=== PATIENT | female | born 1970 | race Asian ===

== ENCOUNTER → 2016-11-09 | Outpatient (CLI) | payer OTHER | LOC: WI 08:23 | PROVIDERS: ATTEND Physician Assistant Medical | DX: Z12.31 Encounter for screening mammogram for malignant neoplasm of breast (principal) | CPT/HCPCS: 77067; G0202 ==

== ENCOUNTER → 2016-11-09 | Outpatient (CLI) | payer OTHER ==
[2016-11-09 09:30] LABS: CHOLESTEROL 179.08 mg/dL (0-200); Direct HDL 50 mg/dL (>40); GLUCOSE 93 mg/dL (75-110); TRIGLYCERIDES 85 mg/dL (<150)
[2016-11-09 09:41] LABS: DIRECT LDL 98 mg/dL (<100)
== END ==
LOC: LAB 08:58
PROVIDERS: ATTEND Physician Assistant Medical
DX: N39.3 Stress incontinence (female) (male) (principal); Z13.1 Encounter for screening for diabetes mellitus; Z13.220 Encounter for screening for lipoid disorders
CPT/HCPCS: 36415; 80061; 82947; 87086

== ENCOUNTER 2018-11-05 08:22 | Inpatient (IN) | payer OTHER ==
--- NOTE | 2018-11-05 08:49 | ER Document Report ---
ED Medical Screen (RME) - General Chief Complaint: Abdominal Pain Stated Complaint: STOAMCH PAIN, FEVER, VOMITING Time Seen by Provider: 11/05/18 08:43 Primary Care Provider: AMAURY CASILLAS PA-C [Primary Care Provider] - Follow up as needed Mode of Arrival: Ambulatory Information source: Patient Notes: Patient presents emergency department with complaints of abdominal pain epigastric area since last Monday. Reports is coming and going. Reports worse after eating. Reports that she felt warm but did not take her temperature. She reports after she vomits she feels better. She also reports she took [id number] Prilosec which made pain worse. Denies past medical history. I have greeted and performed a rapid initial assessment of this patient. A comprehensive ED assessment and evaluation of the patient, analysis of test results and completion of the medical decision making process will be conducted by additional ED providers. TRAVEL OUTSIDE OF THE [place] IN LAST 30 DAYS: No - Related Data Allergies/Adverse Reactions: No Known Allergies Allergy (Verified 11/05/18 08:23) Past Medical History - Immunizations Hx Diphtheria, Pertussis, Tetanus Vaccination: Yes Doctor's Discharge - Discharge Referrals: AMAURY CASILLAS PA-C [Primary Care Provider] - Follow up as needed
[2018-11-05 09:51] LABS: ABSOLUTE MONOCYTES (AUTO) 0.5 10^3/uL (0.1-1.4); ABSOLUTE NEUT (AUTO) 10.6 10^3/uL (1.7-8.2); BASOPHILS % (AUTO) 0.2 % (0-2); EOSINOPHILS % (AUTO) 0.1 % (0-6); HEMATOCRIT 42.4 % (36.0-47.0); HEMOGLOBIN 14.5 g/dL (12.0-15.5); LYMPHOCYTES % (AUTO) 8.4 % (13-45); MEAN CORPUSCULAR HEMOGLOBIN 30.4 pg (27.0-33.4); MEAN CORPUSCULAR HGB CONC 34.2 g/dL (32.0-36.0); MEAN CORPUSCULAR VOLUME 89 fl (80-97); MONOCYTES % (AUTO) 4.5 % (3-13); PLATELET COUNT 275 10^3/uL (150-450); RED BLOOD COUNT 4.78 10^6/uL (3.72-5.28); RED CELL DISTRIBUTION WIDTH 13.8 % (11.5-14.0); SEGMENTED NEUTROPHILS % (AUTO) 86.8 % (42-78); TOTAL CELLS COUNTED % (AUTO) 100 %; WHITE BLOOD COUNT 12.3 10^3/uL (4.0-10.5)
[2018-11-05 10:08] LABS: ALANINE AMINOTRANSFERASE 368 U/L (9-52); ALBUMIN 4.7 g/dL (3.5-5.0); ALKALINE PHOSPHATASE 587 U/L (38-126); ANION GAP 15 (5-19); ASPARTATE AMINO TRANSFERASE 238 U/L (14-36); BILIRUBIN,DIRECT 5.1 mg/dL (0.0-0.4); BILIRUBIN,TOTAL 6.2 mg/dL (0.2-1.3); BLOOD UREA NITROGEN 12 mg/dL (7-20); CALCIUM 9.9 mg/dL (8.4-10.2); CARBON DIOXIDE 23 mmol/L (22-30); CHLORIDE 100 mmol/L (98-107); GLUCOSE 91 mg/dL (75-110); LIPASE 560.8 U/L (23-300); POTASSIUM 3.8 mmol/L (3.6-5.0); SODIUM 138.2 mmol/L (137-145); TOTAL PROTEIN 8.3 g/dL (6.3-8.2)
--- NOTE | 2018-11-05 10:46 | RADIOLOGY REPORT (SQ) ---
EXAM DESCRIPTION: U/S ABDOMEN LIMITED W/O DOP COMPLETED DATE/TIME: 11/05/2018 10:27 am REASON FOR STUDY: epigastric pain, worse after eating COMPARISON: None. TECHNIQUE: Dynamic and static grayscale images acquired of the abdomen and recorded on PACS. Margaretteo la selected color Doppler and spectral images recorded. LIMITATIONS: None. FINDINGS: PANCREAS: No masses. Visualized pancreatic duct normal caliber. LIVER: No masses. Echotexture normal. LIVER VASCULATURE: Normal directional flow of the main portal vein and hepatic veins. GALLBLADDER: No stones. There is some sludge. There is thickening of the gallbladder wall and a sma ll amount of pericholecystic fluid. ULTRASOUND-DETECTED ARTEAGA'S SIGN: Negative. INTRAHEPATIC DUCTS AND COMMON DUCT: CBD and intrahepatic ducts normal caliber. No filling defects. INFERIOR VENA CAVA: Not imaged. AORTA: No aneurysm. RIGHT KIDNEY: Normal size, 10.1 cm. Normal echogenicity. No solid or suspicious masses. No hydroneph rosis. No calcifications. PERITONEAL AND RIGHT PLEURAL SPACE: No ascites or effusions. OTHER: No other significant findings. IMPRESSION: Mild gallbladder wall thickening with some pericholecystic fluid. There is some sludge. No stones are present. Correlate for cholecystitis. However, there was a negative Arteaga sign. TECHNICAL DOCUMENTATION: JOB ID: [id number] [email or web address]- All Rights Reserved Reading location - IP/workstation name: [email or web address]
[2018-11-05 11:16] LABS: APPEARANCE,URINE SLIGHTLY-CLOUDY; BILIRUBIN,URINE MODERATE (NEGATIVE); COLOR,URINE AMBER; GLUCOSE, URINE NEGATIVE (NEGATIVE); KETONES,URINE 80 mg/dL (NEGATIVE); LEUKOCYTE ESTERASE,URINE NEGATIVE (NEGATIVE); NITRITE,URINE NEGATIVE (NEGATIVE); PROTEIN,URINE 100 mg/dL (NEGATIVE)
--- NOTE | 2018-11-05 13:26 | ER Document Report ---
ED General - General Chief Complaint: Abdominal Pain Stated Complaint: STOAMCH PAIN, FEVER, VOMITING Time Seen by Provider: 11/05/18 08:43 Primary Care Provider: AMAURY CASILLAS PA-C [NO LOCAL MD] - Follow up as needed Mode of Arrival: Ambulatory Notes: 48-year-old female with no known medical history presents emergency department with complaints of the gastric abdominal pain epigastric since last Monday. She states it is intermittent and reports is worse after eating. Reports that s he felt warm but did not take her temperature. She reports after she vomits she feels better. She also reports she took [id number] Prilosec which made pain worse. She complains of reduced appetite, nausea chills. Denies shortness of breath or chest pain she has no other complaints. TRAVEL OUTSIDE OF THE [place] IN LAST 30 DAYS: No - Related Data Allergies/Adverse Reactions: No Known Allergies Allergy (Verified 11/05/18 08:23) Past Medical History - General Information source: Patient - Social History Smoking Status: Unknown if Ever Smoked Family History: None Patient has suicidal ideation: No Patient has homicidal ideation: No Renal/ Medical History: Denies: Hx Peritoneal Dialysis - Immunizations Hx Diphtheria, Pertussis, Tetanus Vaccination: Yes Review of Systems - Review of Systems Constitutional: See HPI EENT: No symptoms reported Cardiovascular: See HPI Respiratory: See HPI Gastrointestinal: See HPI Genitourinary: No symptoms reported Female Genitourinary: No symptoms reported Musculoskeletal: No symptoms reported Skin: No symptoms reported Hematologic/Lymphatic: No symptoms reported Neurological/Psychological: No symptoms reported Physical Exam - Notes Notes: PHYSICAL EXAMINATION: Reviewed vital signs and charting by RN GENERAL: Alert, interacts well. No acute distress. HEAD: Normocephalic, atraumatic. EYES: Pupils equal, round. Extraocular movements intact. ENT: Oral mucosa moist, tongue midline. NECK: Full range of motion. Supple. Trachea midline. LUNGS: Clear to auscultation bilaterally, no wheezes, rales, or rhonchi. No respiratory distress. HEART: Regular rate and rhythm. No murmur ABDOMEN: soft, epigastric tenderness. Non-distended. Bowel sounds present in all 4 quadrants. no McBurney's point tenderness, no Arteaga sign. EXTREMITIES: Moves all 4 extremities spontaneously. No edema, No cyanosis. PSYCH: Normal affect, normal mood. SKIN: Warm, dry, normal turgor. No rashes or lesions noted. Course - Re-evaluation Re-evalutation: 11/05/18 13:20 Ultrasound sludge in gallbladder with no gallstones. Lipase is elevated at 2 times upper normal limit. AST/ALT elevated. Could possibly represent gallbladder disease. Patient does report of epigastric pain that goes through to her back. Will discuss with Dr. Crowder. 11/05/18 13:[address] Hernández, surgicalist, who stated to start the patient on IV Zosyn and he will come and see her for his OR case. 11/05/18 15:13 Dr. Hernández saw the patient and consulted with Dr. Mireles, taxicab starter. Patient will be admitted under the surgical service and will undergo an ERCP tomorrow. - Laboratory Result Diagrams: 11/05/18 09:10 11/05/18 09:10 Laboratory results interpreted by me: 11/05/18 11/05/18 11/05/18 09:10 09:10 09:10 WBC 12.3 H Seg Neutrophils % 86.8 H Lymphocytes % 8.4 L Absolute Neutrophils 10.6 H Total Bilirubin 6.2 H Direct Bilirubin 5.1 H AST 238 H ALT 368 H Alkaline Phosphatase 587 H Total Protein 8.3 H Lipase 560.8 H Urine Protein 100 H Urine Ketones 80 H Urine Blood MODERATE H Urine Bilirubin MODERATE H Urine Urobilinogen 4.0 H Discharge - Discharge Clinical Impression: Biliary pain Abdominal pain Qualifiers: Abdominal location: epigastric Qualified Code(s): R10.13 - Epigastric pain Nausea & vomiting Qualifiers: Vomiting type: unspecified Vomiting Intractability: non-intractable Qualified Code(s): R11.2 - Nausea with vomiting, unspecified Condition: Good Disposition: ADMITTED INPATIENT Admitting Provider: Surgicalist Unit Admitted: Surgical Floor Referrals: AMAURY CASILLAS PA-C [NO LOCAL MD] - Follow up as needed
[2018-11-05] MEDS ORDERED: PIPERACILLIN/TAZOBACTAM 3.375 GM VIAL IV ONE ×2 (13:29→15:45)
[2018-11-05] MEDS ORDERED: ONDANSETRON HCL INJ/PF 4 MG/2 ML SDV IV PRN (16:06)
--- NOTE | 2018-11-05 16:06 | PDOC H&P ---
History of Present Illness Admission Date/PCP: 11/05/18 15:34 Patient complains of: epigastric pains History of Present Illness: HATTIE VLADERRAMA is a 48 year old female who noted epigastric pains radiating to the back after a fatty meal about 6 days ago. Associated nausea,chills. This gradually ubsided 48 hrs later only to come back worse yesterday. Had US gallbl adder in ED today which showed sludge with non dilated bile ducts. Her TB is 6 and DB is 5. LFTs elevated as well as lipase. Past Medical History Medical History: None Past Surgical History Past Surgical History: Reports: Other - Caesarean section Social History Smoking Status: Unknown if Ever Smoked Family History Family History: None Parental Family History Reviewed: Yes Children Family History Reviewed: No Sibling(s) Family History Reviewed.: No Medication/Allergy Allergies/Adverse Reactions: No Known Allergies Allergy (Verified 11/05/18 08:23) Review of Systems Constitutional: PRESENT: as per HPI Eyes: PRESENT: other - no visual/hearing changes Cardiovascular: PRESENT: other - no chest pains/cough Gastrointestinal: PRESENT: abdominal pain, nausea Genitourinary: PRESENT: other - no dysuria Musculoskeletal: PRESENT: back pain Physical Exam General appearance: PRESENT: mild distress Head exam: PRESENT: atraumatic Eye exam: PRESENT: scleral icterus - mild Mouth exam: PRESENT: moist Neck exam: PRESENT: full ROM Respiratory exam: PRESENT: clear to auscultation humaira Cardiovascular exam: PRESENT: RRR Pulses: PRESENT: normal radial pulses Vascular exam: PRESENT: normal capillary refill GI/Abdominal exam: PRESENT: soft, tenderness - epigastric area Rectal exam: PRESENT: deferred Extremities exam: PRESENT: full ROM Musculoskeletal exam: PRESENT: ambulatory Neurological exam: PRESENT: alert, oriented to person, oriented to place, oriented to time, oriented to situation Psychiatric exam: PRESENT: appropriate affect Skin exam: PRESENT: jaundice, normal color, warm Results Laboratory Results: 11/05/18 09:10 11/05/18 09:10 11/05/18 11/05/18 11/05/18 09:10 09:10 09:10 WBC 12.3 H RBC 4.78 Hgb 14.5 Hct 42.4 MCV 89 MCH 30.4 MCHC 34.2 RDW 13.8 Plt Count 275 Seg Neutrophils % 86.8 H Lymphocytes % 8.4 L Monocytes % 4.5 Eosinophils % 0.1 Basophils % 0.2 Absolute Neutrophils 10.6 H Absolute Lymphocytes 1.0 Absolute Monocytes 0.5 Absolute Eosinophils 0.0 Absolute Basophils 0.0 Sodium 138.2 Potassium 3.8 Chloride 100 Carbon Dioxide 23 Anion Gap 15 BUN 12 Creatinine 0.59 Est GFR ( Amer) > 60 Est GFR (Non-Af Amer) > 60 Glucose 91 Calcium 9.9 Total Bilirubin 6.2 H AST 238 H ALT 368 H Alkaline Phosphatase 587 H Total Protein 8.3 H Albumin 4.7 Lipase 560.8 H Urine Color RISHI Urine Appearance SLIGHTLY-CLOUDY Urine pH 5.0 Ur Specific [place] 1.030 Urine Protein 100 H Urine Glucose (UA) NEGATIVE Urine Ketones 80 H Urine Blood MODERATE H Urine Nitrite NEGATIVE Ur Leukocyte Esterase NEGATIVE Urine WBC (Auto) 2 Urine RBC (Auto) 3 Impressions: Abdomen Ultrasound 11/05/18 08:46 IMPRESSION: Mild gallbladder wall thickening with some pericholecystic fluid. There is some sludge. No stones are present. Correlate for cholecystitis. However, there was a negative Arteaga sign. Assessment & Plan - Diagnosis (1) Biliary sludge determined by ultrasound Is this a current diagnosis for this admission?: Yes (2) Elevated LFTs and lipase Is this a current diagnosis for this admission?: Yes (3) Nausea & vomiting Qualifiers: Vomiting type: unspecified Vomiting Intractability: non-intractable Qualified Code(s): R11.2 - Nausea with vomiting, unspecified Is this a current diagnosis for this admission?: Yes - Time Time Spent: 30 to 50 Minutes - Inpatient Certification Medical Necessity: Need For IV Fluids, Need for IV Antibiotics, Need for Surgery - Plan Summary Plan Summary: D/W Dr Mireles. He can do ERCP tomorrow and can be followed the next day with lap rubia Start IV antibiotics
[2018-11-05] MEDS ORDERED: PIPERACILLIN/TAZOBACTAM 3.375 GM VIAL IV SCH (16:15)
[2018-11-05] MEDS: DEXTROSE 5%-LACTATED RINGERS 1,000 ML IV PRN (18:04)
[2018-11-06] MEDS: DEXTROSE 5%-LACTATED RINGERS 1,000 ML IV PRN (01:16)
[2018-11-06 06:55] LABS: ABSOLUTE EOSINOPHILS # (AUTO) 0.1 10^3/uL (0.0-0.6); ABSOLUTE LYMPHOCYTES (AUTO) 1.4 10^3/uL (0.5-4.7); ABSOLUTE MONOCYTES (AUTO) 0.5 10^3/uL (0.1-1.4); ABSOLUTE NEUT (AUTO) 4.7 10^3/uL (1.7-8.2); BASOPHILS % (AUTO) 0.4 % (0-2); EOSINOPHILS % (AUTO) 1.1 % (0-6); HEMATOCRIT 39.6 % (36.0-47.0); HEMOGLOBIN 13.7 g/dL (12.0-15.5); LYMPHOCYTES % (AUTO) 20.5 % (13-45); MEAN CORPUSCULAR HEMOGLOBIN 30.6 pg (27.0-33.4); MEAN CORPUSCULAR HGB CONC 34.7 g/dL (32.0-36.0); MEAN CORPUSCULAR VOLUME 88 fl (80-97); MONOCYTES % (AUTO) 7.6 % (3-13); PLATELET COUNT 256 10^3/uL (150-450); RED BLOOD COUNT 4.49 10^6/uL (3.72-5.28); RED CELL DISTRIBUTION WIDTH 13.7 % (11.5-14.0); SEGMENTED NEUTROPHILS % (AUTO) 70.4 % (42-78); TOTAL CELLS COUNTED % (AUTO) 100 %; WHITE BLOOD COUNT 6.7 10^3/uL (4.0-10.5)
[2018-11-06 07:15] LABS: ALANINE AMINOTRANSFERASE 335 U/L (9-52); ALKALINE PHOSPHATASE 477 U/L (38-126); ANION GAP 12 (5-19); ASPARTATE AMINO TRANSFERASE 212 U/L (14-36); BLOOD UREA NITROGEN 6 mg/dL (7-20); CALCIUM 9.2 mg/dL (8.4-10.2); CARBON DIOXIDE 28 mmol/L (22-30); CHLORIDE 99 mmol/L (98-107); GLUCOSE 100 mg/dL (75-110); LIPASE 1808.1 U/L (23-300); SODIUM 138.6 mmol/L (137-145); TOTAL PROTEIN 7.4 g/dL (6.3-8.2)
[2018-11-06 07:29] LABS: BILIRUBIN,DIRECT 1.4 mg/dL (0.0-0.4)
[2018-11-06 07:39] LABS: BILIRUBIN,TOTAL 2.7 mg/dL (0.2-1.3)
[2018-11-06] MEDS: POTASSIUM CHLORIDE 20 MEQ/50 ML RTU IV SCH ×2 (08:16→10:07)
[2018-11-06] MEDS ORDERED: PIPERACILLIN SODIUM/TAZOBACTAM 3.375 GM in NORMAL SALINE 100 ML IV ONE (08:30)
[2018-11-06] MEDS ORDERED: SUCCINYLCHOLINE CHLORIDE INJ 200 MG/10 ML VIAL ONE (13:52)
[2018-11-06] MEDS ORDERED: MIDAZOLAM 2 MG/2 ML INJ ONE (16:42)
[2018-11-06] MEDS ORDERED: DEXAMETHASONE SOD PHOSPHATE INJ 4 MG/1 ML VIAL ONE (16:42)
[2018-11-06] MEDS ORDERED: ONDANSETRON HCL INJ/PF 4 MG/2 ML SDV ONE (16:42)
[2018-11-06] MEDS ORDERED: PROPOFOL INJ 200 MG/20 ML VIAL IV ONE (16:42)
[2018-11-06] MEDS ORDERED: FENTANYL CITRATE INJ/PF 100 MCG/2 ML AMPUL ONE (16:42)
--- NOTE | 2018-11-06 18:52 | PDOC CONSULTATION ---
Consultation Consult Date: 11/05/18 History of Present Illness Admission Date/PCP: 11/05/18 15:34 History of Present Illness: HATTIE VALDERRAMA is a 48 year old femalePatient was admitted on 11/05/2018 with recurrent abdominal pain, fever, gallbladder sludge and jaundice. She initially had a 4-day history of recurrent epigastric pain associated with fever and chills. The pain went away 4 days ago but came back 2 days ago. On admission her bilirubin was 6 with elevated transaminases and alkaline phosphatase. Her lipase was slightly elevated at 560. She has no previous history of liver disease. Past Surgical History Past Surgical History: Reports: Other - Caesarean section Social History Smoking Status: Never Smoker - Advance Directive Resuscitation Status: Full Code Family History Family History: None Parental Family History Reviewed: No Children Family History Reviewed: NA Sibling(s) Family History Reviewed.: NA Medication/Allergy Home Medications: Omeprazole Magnesium [Prilosec Otc] 20 mg PO DAILY 11/05/18 Allergies/Adverse Reactions: No Known Allergies Allergy (Verified 11/05/18 08:23) Review of Systems All systems: reviewed and no additional remarkable complaints except as stated Physical Exam Vital Signs: Temp Pulse Resp BP Pulse Ox 97.9 F 103 H 16 140/80 H 97 11/06/18 16:09 11/06/18 16:09 11/06/18 16:09 11/06/18 16:09 11/06/18 16:09 Intake & Output 11/05/18 11/06/18 11/07/18 06:59 06:59 06:59 Intake Total 1200 1200 Output Total 118 Balance 1082 1200 Weight 47.8 kg Exam: General: Patient is alert and looks well. HEENT: There is no pallor but she is jaundiced. PERRLA. Oropharynx normal Respiratory: No chest deformity. No respiratory distress. Chest wall palpitation was unremarkable. Breath sounds were normal Cardiovascular: Heart sounds 1 and 2 normal with no murmurs. Abdominal: Not distended. Soft and nontender. Liver and spleen not palpable. No ascites demonstrated. Bowel sounds active. Rectal examination was deferred. Extremities: No edema Neurological: Alert and oriented x4. Grossly nonfocal. Normal speech Skin: No significant rash Psychological: Normal affect Results Laboratory Results: 11/06/18 05:48 11/06/18 15:15 11/06/18 11/06/1811/06/19 05:48 05:48 15:15 WBC 6.7 RBC 4.49 Hgb 13.7 Hct 39.6 MCV 88 MCH 30.6 MCHC 34.7 RDW 13.7 Plt Count 256 Seg Neutrophils % 70.4 Lymphocytes % 20.5 Monocytes % 7.6 Eosinophils % 1.1 Basophils % 0.4 Absolute Neutrophils 4.7 Absolute Lymphocytes 1.4 Absolute Monocytes 0.5 Absolute Eosinophils 0.1 Absolute Basophils 0.0 Sodium 138.6 Potassium 3.0 L* 4.0 D Chloride 99 Carbon Dioxide 28 Anion Gap 12 BUN 6 L Creatinine 0.51 L Est GFR ( Amer) > 60 Est GFR (Non-Af Amer) > 60 Glucose 100 Calcium 9.2 Total Bilirubin 2.7 H D AST 212 H ALT 335 H Alkaline Phosphatase 477 H Total Protein 7.4 Albumin 4.0 Lipase 1808.1 H Impressions: Abdomen Ultrasound 11/05/18 08:46 IMPRESSION: Mild gallbladder wall thickening with some pericholecystic fluid. There is some sludge. No stones are present. Correlate for cholecystitis. However, there was a negative Arteaga sign. Assessment & Plan - Diagnosis (1) Jaundice Is this a current diagnosis for this admission?: Yes Plan: Her recurrent abdominal pain associated with jaundice, fever, chills, gallbladder sludge and elevated lipase is very suggestive of choledocholithiasis. The need for an ERCP was explained to the patient and she is in agreement. (2) Epigastric pain Is this a current diagnosis for this admission?: Yes (3) Biliary sludge determined by ultrasound Is this a current diagnosis for this admission?: Yes (4) Elevated LFTs and lipase Is this a current diagnosis for this admission?: Yes (5) Nausea & vomiting Qualifiers: Vomiting type: unspecified Vomiting Intractability: non-intractable Qualified Code(s): R11.2 - Nausea with vomiting, unspecified Is this a current diagnosis for this admission?: Yes
--- NOTE | 2018-11-06 18:55 | Operative Report ---
Operative Report DATE OF SURGERY: 11/06/18 Operative Report: Pre-op diagnosis: Jaundice, gallbladder sludge and pancreatitis Post-op diagnosis: 1. Large periampullar diverticulum 2. Normal pancreatic ducts 3. Common bile duct not cannulated Surgery: ERCP Medications: As per anesthesia Tissue removed: none Procedure: After informed consent obtained from patient, the throat was sprayed with Hurricane and conscious sedation was achieved. The ERCP endoscope was then inserted into the esophagus blindly and advanced into the stomach. The duodenum was entered and the ampulla was identified. There was a large diverticulum with the ampullary opening within it. Multiple attempts were then made to cannulate the common bile duct unsuccessfully. The pancreatic duct was cannulated and the pancreatogram was normal. Patient tolerated procedure well. Findings Common bile duct: Not cannulated Intrahepatic ducts: Not cannulated Pancreatic duct: Normal Plan: Proceed with cholecystectomy and intraoperative cholangiogram. OPERATION: .
[2018-11-06] MEDS ORDERED: MORPHINE SULFATE 10 MG/ML INJ IV PRN (19:12)
[2018-11-06] MEDS ORDERED: PROMETHAZINE HCL INJ 25 MG/1 ML VIAL IV PRN ×2 (19:12)
[2018-11-06] MEDS ORDERED: MEPERIDINE HCL/PF INJ 25 MG/1 ML DISP.SYRIN IV PRN (19:12)
[2018-11-06] MEDS ORDERED: DIPHENHYDRAMINE HCL 50 MG/ML VIAL IV PRN (19:12)
[2018-11-06] MEDS ORDERED: FENTANYL CITRATE INJ/PF 100 MCG/2 ML AMPUL IV PRN ×3 (19:12)
--- NOTE | 2018-11-06 23:50 | PDOC PROGRESS REPORT ---
Subjective Progress Note for:: 11/06/18 Subjective:: Less pains Reason For Visit: BILIARY SLUDGE, ELEVATED LFTS AND LIPASE Physical Exam Vital Signs: Temp Pulse Resp BP Pulse Ox 97.4 F 64 17 126/73 H 97 11/06/18 20:34 11/06/18 20:34 11/06/18 20:34 11/06/18 20:34 11/06/18 20:34 Intake & Output 11/05/18 11/06/18 11/07/18 06:59 06:59 06:59 Intake Total 1200 2100 Output Total 118 0 Balance 1082 2100 Weight 47.8 kg Results Laboratory Results: 11/06/18 05:48 11/06/18 15:15 11/06/18 11/06/18 11/06/18 05:48 05:48 15:15 WBC 6.7 RBC 4.49 Hgb 13.7 Hct 39.6 MCV 88 MCH 30.6 MCHC 34.7 RDW 13.7 Plt Count 256 Seg Neutrophils % 70.4 Lymphocytes % 20.5 Monocytes % 7.6 Eosinophils % 1.1 Basophils % 0.4 Absolute Neutrophils 4.7 Absolute Lymphocytes 1.4 Absolute Monocytes 0.5 Absolute Eosinophils 0.1 Absolute Basophils 0.0 Sodium 138.6 Potassium 3.0 L* 4.0 D Chloride 99 Carbon Dioxide 28 Anion Gap 12 BUN 6 L Creatinine 0.51 L Est GFR ( Amer) > 60 Est GFR (Non-Af Amer) > 60 Glucose 100 Calcium 9.2 Total Bilirubin 2.7 H D AST 212 H ALT 335 H Alkaline Phosphatase 477 H Total Protein 7.4 Albumin 4.0 Lipase 1808.1 H Impressions: Abdomen Ultrasound 11/05/18 08:46 IMPRESSION: Mild gallbladder wall thickening with some pericholecystic fluid. There is some sludge. No stones are present. Correlate for cholecystitis. However, there was a negative Arteaga sign. Assessment & Plan - Diagnosis (1) Biliary sludge determined by ultrasound Is this a current diagnosis for this admission?: Yes (2) Elevated LFTs and lipase Is this a current diagnosis for this admission?: Yes (3) Nausea & vomiting Qualifiers: Vomiting type: unspecified Vomiting Intractability: non-intractable Qualified Code(s): R11.2 - Nausea with vomiting, unspecified Is this a current diagnosis for this admission?: Yes - Time Time Spent with patient: 15-24 minutes - Plan Summary Plan Summary: D/W Dr PEREZ. He was not successful in ERCP. 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 Dr PEREZ suggested lap rubia with IOC and possible CBD exploration if + CBD stone vs referral to a tertiary center for ERCP. Will keep NPO after midnight. Will inform Dr Holley of above plans.
[2018-11-07] MEDS: DEXTROSE 5%-LACTATED RINGERS 1,000 ML IV PRN (03:27)
[2018-11-07 04:39] LABS: ABSOLUTE MONOCYTES (AUTO) 0.2 10^3/uL (0.1-1.4); ABSOLUTE NEUT (AUTO) 5.6 10^3/uL (1.7-8.2); BASOPHILS % (AUTO) 0.3 % (0-2); HEMATOCRIT 38.9 % (36.0-47.0); HEMOGLOBIN 13.2 g/dL (12.0-15.5); LYMPHOCYTES % (AUTO) 14.4 % (13-45); MEAN CORPUSCULAR HEMOGLOBIN 29.9 pg (27.0-33.4); MEAN CORPUSCULAR VOLUME 88 fl (80-97); MONOCYTES % (AUTO) 2.5 % (3-13); PLATELET COUNT 236 10^3/uL (150-450); RED BLOOD COUNT 4.43 10^6/uL (3.72-5.28); RED CELL DISTRIBUTION WIDTH 13.8 % (11.5-14.0); SEGMENTED NEUTROPHILS % (AUTO) 82.8 % (42-78); TOTAL CELLS COUNTED % (AUTO) 100 %; WHITE BLOOD COUNT 6.7 10^3/uL (4.0-10.5)
[2018-11-07 05:04] LABS: ANION GAP 9 (5-19); BLOOD UREA NITROGEN 4 mg/dL (7-20); CALCIUM 9.5 mg/dL (8.4-10.2); CARBON DIOXIDE 24 mmol/L (22-30); CHLORIDE 106 mmol/L (98-107); GLUCOSE 127 mg/dL (75-110); LIPASE 503.4 U/L (23-300); POTASSIUM 4.2 mmol/L (3.6-5.0); SODIUM 139.1 mmol/L (137-145)
[2018-11-07 08:09] LABS: ALANINE AMINOTRANSFERASE 256 U/L (9-52); ALBUMIN 3.5 g/dL (3.5-5.0); ALKALINE PHOSPHATASE 391 U/L (38-126); ASPARTATE AMINO TRANSFERASE 107 U/L (14-36); BILIRUBIN,TOTAL 1.7 mg/dL (0.2-1.3); TOTAL PROTEIN 6.9 g/dL (6.3-8.2)
--- NOTE | 2018-11-07 08:18 | RADIOLOGY REPORT (SQ) ---
EXAM DESCRIPTION: ENDO CATH/BILIARY DUCT; NO CHG FLUORO COMPLETED DATE/TIME: 11/06/2018 7:05 pm; 11/06/2018 7:04 pm REASON FOR STUDY: ERCP ATTEMPTED COMPARISON: None. FLUOROSCOPY TIME: 3.2 minutes Spot images saved to PACS. TECHNIQUE: Intra-operative images acquired during surgical procedure to evaluate progress. NUMBER OF IMAGES: 2 LIMITATIONS: None. FINDINGS: Fluoroscopy was provided for intraoperative procedure. Please refer to the operative repo rt for further discussion. IMPRESSION: IMAGE(S) OBTAINED DURING PROCEDURE. COMMENT: Quality ID [id number]: Final reports for procedures using fluoroscopy that document radiation exp osure indices, or exposure time and number of fluorographic images (if radiation exposure indices are not available) Please consult full operative report of the attending physician for description of the procedure. TECHNICAL DOCUMENTATION: JOB ID: [id number] [employer]- All Rights Reserved Reading location - IP/workstation name: [email or web address]
--- NOTE | 2018-11-07 08:18 | RADIOLOGY REPORT (SQ) ---
EXAM DESCRIPTION: ENDO CATH/BILIARY DUCT; NO CHG FLUORO COMPLETED DATE/TIME: 11/06/2018 7:05 pm; 11/06/2018 7:04 pm REASON FOR STUDY: ERCP ATTEMPTED COMPARISON: None. FLUOROSCOPY TIME: 3.2 minutes Spot images saved to PACS. TECHNIQUE: Intra-operative images acquired during surgical procedure to evaluate progress. NUMBER OF IMAGES: 2 LIMITATIONS: None. FINDINGS: Fluoroscopy was provided for intraoperative procedure. Please refer to the operative repo rt for further discussion. IMPRESSION: IMAGE(S) OBTAINED DURING PROCEDURE. COMMENT: Quality ID [id number]: Final reports for procedures using fluoroscopy that document radiation exp osure indices, or exposure time and number of fluorographic images (if radiation exposure indices are not available) Please consult full operative report of the attending physician for description of the procedure. TECHNICAL DOCUMENTATION: JOB ID: [id number] [employer]- All Rights Reserved Reading location - IP/workstation name: [email or web address]
[2018-11-07] MEDS ORDERED: DEXAMETHASONE SOD PHOSPHATE INJ 4 MG/1 ML VIAL ONE (12:34)
[2018-11-07] MEDS ORDERED: GLYCOPYRROLATE 1 MG/5 ML SYRINGE ONE (12:34)
[2018-11-07] MEDS ORDERED: SUCCINYLCHOLINE CHLORIDE INJ 200 MG/10 ML VIAL ONE (12:34)
[2018-11-07] MEDS ORDERED: KETOROLAC TROMETHAMINE 60 MG/2 ML SDV ONE (12:34)
[2018-11-07] MEDS ORDERED: LIDOCAINE 2% INJ-PF (20 MG/ML) 2 ML AMPUL ONE (12:34)
[2018-11-07] MEDS ORDERED: ONDANSETRON HCL INJ/PF 4 MG/2 ML SDV ONE (12:34)
[2018-11-07] MEDS ORDERED: NEOSTIGMINE METHYLSULFATE 10 MG/10 ML VIAL ONE (12:34)
[2018-11-07] MEDS ORDERED: ROCURONIUM BROMIDE INJ 50 MG/5 ML VIAL IV ONE (12:34)
[2018-11-07] MEDS ORDERED: BUPIVACAINE HCL 0.25 % INJ/PF (2.5 MG/1 ML) 30 ML VIAL ONE (12:38)
[2018-11-07] MEDS ORDERED: FENTANYL CITRATE INJ/PF 100 MCG/2 ML AMPUL ONE (12:39)
[2018-11-07] MEDS ORDERED: HYDROMORPHONE HCL INJ/PF 2 MG/ML AMPULE ONE (12:39)
[2018-11-07] MEDS ORDERED: MIDAZOLAM 2 MG/2 ML INJ ONE (12:39)
[2018-11-07] MEDS ORDERED: PROPOFOL INJ 200 MG/20 ML VIAL IV ONE (12:39)
[2018-11-07] MEDS ORDERED: ACETAMINOPHEN 1,000 MG/100 ML RTUPB IV ONE (12:40)
[2018-11-07] MEDS ORDERED: PIPERACILLIN SODIUM/TAZOBACTAM 3.375 GM in NORMAL SALINE 100 ML IV PRN (12:58)
--- NOTE | 2018-11-07 13:18 | PDOC PROGRESS REPORT ---
Subjective Progress Note for:: 11/07/18 Subjective:: 48 y/o F with jaundice and upper abdominal pain. Her ERCP was unsuccessful, however she is feeling better today. She denies CP, SOB, fevers, chills. Reason For Visit: BILIARY SLUDGE, ELEVATED LFTS AND LIPASE Physical Exam Vital Signs: Temp Pulse Resp BP Pulse Ox 98.0 F 67 15 164/79 H 98 11/07/18 11:47 11/07/18 11:47 11/07/18 11:47 11/07/18 11:47 11/07/18 11:47 Intake & Output 11/06/18 11/07/18 11/08/18 06:59 06:59 06:59 Intake Total 1200 2642 1000 Output Total 118 0 Balance 1082 2642 1000 Weight 47.8 kg 48.2 kg General appearance: PRESENT: no acute distress Head exam: PRESENT: atraumatic, normocephalic Eye exam: PRESENT: EOMI, PERRLA, scleral icterus Mouth exam: PRESENT: moist, neck supple Neck exam: ABSENT: meningismus, tenderness, thyromegaly, tracheal deviation Respiratory exam: PRESENT: clear to auscultation humaira, unlabored. ABSENT: chest wall tenderness, tachypnea Cardiovascular exam: PRESENT: RRR Pulses: PRESENT: normal radial pulses Vascular exam: PRESENT: normal capillary refill. ABSENT: pallor GI/Abdominal exam: PRESENT: soft, tenderness - epigastric. ABSENT: distended, guarding, rebound Rectal exam: PRESENT: deferred Extremities exam: ABSENT: clubbing Musculoskeletal exam: ABSENT: deformity Neurological exam: PRESENT: alert, awake, oriented to person, oriented to place, oriented to time, oriented to situation, CN II-XII grossly intact. ABSENT: motor sensory deficit Psychiatric exam: ABSENT: agitated, anxious, depressed Focused psych exam: ABSENT: delusional Skin exam: PRESENT: jaundice. ABSENT: cyanosis, erythema Results Laboratory Results: 11/07/18 03:52 11/07/18 03:52 11/06/18 11/07/18 11/07/18 15:15 03:52 03:52 WBC 6.7 RBC 4.43 Hgb 13.2 Hct 38.9 MCV 88 MCH 29.9 MCHC 34.0 RDW 13.8 Plt Count 236 Seg Neutrophils % 82.8 H Lymphocytes % 14.4 Monocytes % 2.5 L Eosinophils % 0.0 Basophils % 0.3 Absolute Neutrophils 5.6 Absolute Lymphocytes 1.0 Absolute Monocytes 0.2 Absolute Eosinophils 0.0 Absolute Basophils 0.0 Sodium 139.1 Potassium 4.0 D 4.2 Chloride 106 Carbon Dioxide 24 Anion Gap 9 BUN 4 L Creatinine 0.44 L Est GFR ( Amer) > 60 Est GFR (Non-Af Amer) > 60 Glucose 127 H Calcium 9.5 Total Bilirubin AST ALT Alkaline Phosphatase Total Protein Albumin Lipase 503.4 H 11/07/18 03:52 WBC RBC Hgb Hct MCV MCH MCHC RDW Plt Count Seg Neutrophils % Lymphocytes % Monocytes % Eosinophils % Basophils % Absolute Neutrophils Absolute Lymphocytes Absolute Monocytes Absolute Eosinophils Absolute Basophils Sodium Potassium Chloride Carbon Dioxide Anion Gap BUN Creatinine Est GFR ( Amer) Est GFR (Non-Af Amer) Glucose Calcium Total Bilirubin 1.7 H AST 107 H ALT 256 H Alkaline Phosphatase 391 H Total Protein 6.9 Albumin 3.5 Lipase Impressions: Abdomen Ultrasound 11/05/18 08:46 IMPRESSION: Mild gallbladder wall thickening with some pericholecystic fluid. There is some sludge. No stones are present. Correlate for cholecystitis. However, there was a negative Arteaga sign. Catheter Placement 11/06/18 00:00 IMPRESSION: IMAGE(S) OBTAINED DURING PROCEDURE. Fluoroscopy 11/06/18 00:00 IMPRESSION: IMAGE(S) OBTAINED DURING PROCEDURE. Assessment & Plan - Diagnosis (1) Biliary sludge determined by ultrasound Is this a current diagnosis for this admission?: Yes - Plan Summary Plan Summary: 48 y/ol F with hyperbilirubinemia and epigastric pain. ERCP was unsuccessful. I have discussed options with the pt, including cholecystectomy with cholangiogram. The pt wishes to remain in [place] for her care. Her bilirubin is normalizing, making the possibility of a large retained gallstone much less. If choledocolithiasis is identified, and it cannot be extracted, she will have to be transferred to a tertiary care facility for further treatment. The pt is aware of this, and agrees with the treatment plan. Plan for cholecystectomy today with cholangiogram.
[2018-11-07] MEDS ORDERED: MEPERIDINE HCL/PF INJ 25 MG/1 ML DISP.SYRIN IV PRN (13:42)
[2018-11-07] MEDS ORDERED: PROMETHAZINE HCL INJ 25 MG/1 ML VIAL IV PRN ×2 (13:42)
[2018-11-07] MEDS ORDERED: DIPHENHYDRAMINE HCL 50 MG/ML VIAL IV PRN (13:42)
[2018-11-07] MEDS ORDERED: MORPHINE SULFATE 10 MG/ML INJ IV PRN (13:42)
[2018-11-07] MEDS ORDERED: FENTANYL CITRATE INJ/PF 100 MCG/2 ML AMPUL IV PRN ×3 (13:42)
[2018-11-07] MEDS ORDERED: GLUCAGON,HUMAN RECOMB 1 MG INJ ONE (13:56)
--- NOTE | 2018-11-07 16:42 | RADIOLOGY REPORT (SQ) ---
EXAM DESCRIPTION: CHOLANGIOGRAM OPERATIVE COMPLETED DATE/TIME: 11/07/2018 2:37 pm REASON FOR STUDY: LARPROSCOPIC SHAHID COMPARISON: FLUOROSCOPY TIME: 3.4 minutes 10 images saved to PACS. TECHNIQUE: 10 images were obtained from an intraoperative cholangiogram. LIMITATIONS: None. FINDINGS: There is opacification of the bile ducts with ovoid filling defect noted at the level of t he cystic duct remanent. Additional images demonstrate evidence of snare retrieval. Completion imag e demonstrates ovoid filling defect at the level of the distal CBD with residual opacification of the CBD, intrahepatic ducts and duodenum. Please see operative report for detailed discussion of the pr ocedure. IMPRESSION: Intraoperative cholangiogram. Completion image demonstrates residual ovoid filling defe ct within the distal CBD compatible with choledocholithiasis. Please see operative report for detail ed discussion. COMMENT: Quality ID [id number]: Final reports for procedures using fluoroscopy that document radiation exp osure indices, or exposure time and number of fluorographic images (if radiation exposure indices are not available) TECHNICAL DOCUMENTATION: JOB ID: [id number] [employer]- All Rights Reserved Reading location - IP/workstation name: [email or web address]
--- NOTE | 2018-11-07 17:36 | Operative Report ---
Nonrecallable Operative Report DATE OF SURGERY: 11/07/18 PREOPERATIVE DIAGNOSIS: Hyperbilirubinemia, cholecystitis. POSTOPERATIVE DIAGNOSIS: 1. Acute cholecystitis. 2. No filling defects identified within the bile ducts. 3. No contrast filling of the duodenum, concerning for continued obstruction at or near the ampulla of Vater. OPERATION: Laparoscopic cholecystectomy with cholangiogram. SURGEON: RABIA COUGHLIN ANESTHESIA: GA TISSUE REMOVED OR ALTERED: Gallbladder COMPLICATIONS: Cholangiogram without filling of contrast into the duodenum. PROCEDURE: Drains/implants: None. Procedure in detail: After informed consent was obtained, the patient was brought to the operating room and laid in the supine position. The area of the abdomen was prepped and draped in a normal sterile fashion. A 15 blade scalpel was used to create a supraumbilical incision. Dissection was carried through the subcutaneous tissue using sharp and blunt dissection. The cicatrix was identified and grasped with a Jerrell clamp. It was retracted upwards, and the linea alba fascia was incised sharply. The abdomen was entered sharply. The balloon trocar was inserted, and pneumoperitoneum was achieved. A subxiphoid 5 mm port was placed under direct laparoscopic visualization. 2 more 5 mm ports were placed in the right upper quadrant similar fashion. Atraumatic graspers were placed through the 5 mm ports. The gallbladder was retracted cephalad and laterally. Dissection began in the triangle of Calot. The cystic duct and cystic artery were fully visualized and skeletonized, seeing the liver through the triangle. Once the critical view of safety was obtained, the cystic artery was clipped and cut with laparoscopic instruments. The infu ndibulum was clipped and a small ductotomy was performed below the clip. The cholangiogram catheter was then inserted into the bile duct and a cholangiogram was performed. The common bile duct, common hepatic duct, right and left hepatic ducts, and there radicals filled easily. Contrast flowed toward the ampulla of Vater, however never entered into the duodenum. Glucagon was given, without success. No filling defects could be seen within the bile duct. There were no stones found within the gallbladder. After this was confirmed, further investigation would be necessary, but the cholecystectomy would need to be completed first. Clips were placed on the cystic duct. The cystic duct was divided using laparoscopic scissors. The gallbladder was then removed from the liver using Bovie electrocautery. The gallbladder was grasped with a large clamp and pulled out through the umbilicus. The camera was reinserted and the hilum was inspected. The hilum was found to be free of any leakage of blood or bile. Once this was confirmed, the 5 mm trochars were removed under direct laparoscopic visualization. The supraumbilical trocar was removed, and pneumoperitoneum was relieved. The supraumbilical fascia was closed using 0 Vicryl suture in [id number] fashion. The overlying skin was closed using 4-0 Vicryl Rapide suture in subcuticular fashion. All sponge, instrument, and needle counts were correct x2. Condition: Stable.
--- NOTE | 2018-11-07 18:43 | RADIOLOGY REPORT (SQ) ---
EXAM DESCRIPTION: MRI ABDOMEN WITHOUT COMPLETED DATE/TIME: 11/07/2018 6:14 pm REASON FOR STUDY: MRCP for abnormal cholangio, failed ERCP COMPARISON: Same day fluoroscopic cholangiogram TECHNIQUE: Noncontrast MRCP. Source and MIP images reviewed. LIMITATIONS: Breath motion artifact. FINDINGS: GALLBLADDER: Status post cholecystectomy. Minimal fluid in the gallbladder fossa. INTRAHEPATIC DUCTS: Nondilated. EXTRAHEPATIC DUCTS: Dilation of the common bile duct to 1.0 cm, as seen on prior imaging. No filling defect of the distal common bile duct as seen on intraoperative cholangiogram images. PANCREAS: Generally homogeneous, no gross mass or significant signal alteration. No surrounding infl ammatory changes or fluid. Pancreatic duct is normal. LIVER, SPLEEN, KIDNEYS, ADRENALS: No significant abnormality. VESSELS: No evidence of aneurysm. Grossly appropriate flow voids in the major vascular structures. LUNG BASES: Grossly clear. OTHER: No other significant finding. IMPRESSION: Status post cholecystectomy. Dilation of the common bile duct to 1.0 cm, as seen on prio r imaging. No filling defect of the distal common bile duct to suggest choledocholithiasis as seen o n intraoperative cholangiogram images. TECHNICAL DOCUMENTATION: JOB ID: [id number] [employer]- All Rights Reserved Reading location - IP/workstation name: [email or web address]
[2018-11-08] MEDS: DEXTROSE 5%-LACTATED RINGERS 1,000 ML IV PRN (03:39)
[2018-11-08] MEDS: HYDROCODONE/ACETAMINOPHEN 5-325 MG TABLET PO PRN ×2 (04:13→10:34)
[2018-11-08 05:16] LABS: ABSOLUTE LYMPHOCYTES (AUTO) 1.7 10^3/uL (0.5-4.7); ABSOLUTE MONOCYTES (AUTO) 0.7 10^3/uL (0.1-1.4); ABSOLUTE NEUT (AUTO) 9.6 10^3/uL (1.7-8.2); BASOPHILS % (AUTO) 0.3 % (0-2); EOSINOPHILS % (AUTO) 0.1 % (0-6); HEMOGLOBIN 11.8 g/dL (12.0-15.5); LYMPHOCYTES % (AUTO) 14.2 % (13-45); MEAN CORPUSCULAR HEMOGLOBIN 29.9 pg (27.0-33.4); MEAN CORPUSCULAR HGB CONC 33.7 g/dL (32.0-36.0); MEAN CORPUSCULAR VOLUME 89 fl (80-97); MONOCYTES % (AUTO) 5.9 % (3-13); PLATELET COUNT 241 10^3/uL (150-450); RED BLOOD COUNT 3.95 10^6/uL (3.72-5.28); RED CELL DISTRIBUTION WIDTH 13.8 % (11.5-14.0); SEGMENTED NEUTROPHILS % (AUTO) 79.5 % (42-78); TOTAL CELLS COUNTED % (AUTO) 100 %; WHITE BLOOD COUNT 12.1 10^3/uL (4.0-10.5)
[2018-11-08 05:42] LABS: ALANINE AMINOTRANSFERASE 195 U/L (9-52); ALBUMIN 3.2 g/dL (3.5-5.0); ALKALINE PHOSPHATASE 279 U/L (38-126); ANION GAP 9 (5-19); ASPARTATE AMINO TRANSFERASE 90 U/L (14-36); BILIRUBIN,DIRECT 0.6 mg/dL (0.0-0.4); BILIRUBIN,TOTAL 1.6 mg/dL (0.2-1.3); BLOOD UREA NITROGEN 5 mg/dL (7-20); CALCIUM 9.2 mg/dL (8.4-10.2); CARBON DIOXIDE 27 mmol/L (22-30); CHLORIDE 104 mmol/L (98-107); GLUCOSE 119 mg/dL (75-110); POTASSIUM 3.8 mmol/L (3.6-5.0); SODIUM 139.6 mmol/L (137-145); TOTAL PROTEIN 6.3 g/dL (6.3-8.2)
--- NOTE | 2018-11-08 12:08 | PDOC PROGRESS REPORT ---
Subjective Progress Note for:: 11/08/18 Subjective:: more comfortable Reason For Visit: BILIARY SLUDGE, ELEVATED LFTS AND LIPASE Physical Exam Vital Signs: Temp Pulse Resp BP Pulse Ox 98.1 F 58 L 12 145/67 H 98 11/08/18 08:51 11/08/18 08:51 11/08/18 08:51 11/08/18 08:51 11/08/18 08:51 Intake & Output 11/07/18 11/08/18 11/09/18 06:59 06:59 06:59 Intake Total 2642 2250 Output Total 0 20 Balance 2642 2230 Weight 48.2 kg 50.3 kg Exam: abdomen is soft and minimal tenderness at the umbilical incision site Results Laboratory Results: 11/08/18 04:43 11/08/18 04:43 11/08/18 11/08/18 04:43 04:43 WBC 12.1 H RBC 3.95 Hgb 11.8 L Hct 35.0 L MCV 89 MCH 29.9 MCHC 33.7 RDW 13.8 Plt Count 241 Seg Neutrophils % 79.5 H Lymphocytes % 14.2 Monocytes % 5.9 Eosinophils % 0.1 Basophils % 0.3 Absolute Neutrophils 9.6 H Absolute Lymphocytes 1.7 Absolute Monocytes 0.7 Absolute Eosinophils 0.0 Absolute Basophils 0.0 Sodium 139.6 Potassium 3.8 Chloride 104 Carbon Dioxide 27 Anion Gap 9 BUN 5 L Creatinine 0.49 L Est GFR ( Amer) > 60 Est GFR (Non-Af Amer) > 60 Glucose 119 H Calcium 9.2 Total Bilirubin 1.6 H AST 90 H ALT 195 H Alkaline Phosphatase 279 H Total Protein 6.3 Albumin 3.2 L Impressions: Abdomen Ultrasound 11/05/18 08:46 IMPRESSION: Mild gallbladder wall thickening with some pericholecystic fluid. There is some sludge. No stones are present. Correlate for cholecystitis. However, there was a negative Arteaga sign. Catheter Placement 11/06/18 00:00 IMPRESSION: IMAGE(S) OBTAINED DURING PROCEDURE. Fluoroscopy 11/06/18 00:00 IMPRESSION: IMAGE(S) OBTAINED DURING PROCEDURE. Abdomen MRI 11/07/18 00:00 IMPRESSION: Status post cholecystectomy. Dilation of the common bile duct to 1.0 cm, as seen on prior imaging. No filling defect of the distal common bile duct to suggest choledocholithiasis as seen on intraoperative cholangiogram images. Cholangiogram 11/07/18 00:00 IMPRESSION: Intraoperative cholangiogram. Completion image demonstrates residual ovoid filling defect within the distal CBD compatible with choledocholithiasis. Please see operative report for detailed discussion. Assessment & Plan - Diagnosis (1) Biliary sludge determined by ultrasound Is this a current diagnosis for this admission?: Yes (2) Elevated LFTs and lipase Is this a current diagnosis for this admission?: Yes (3) Nausea & vomiting Qualifiers: Vomiting type: unspecified Vomiting Intractability: non-intractable Qualified Code(s): R11.2 - Nausea with vomiting, unspecified Is this a current diagnosis for this admission?: Yes - Time Time Spent with patient: 15-24 minutes - Inpatient Certification Medical Necessity: Need For IV Fluids, Need for IV Antibiotics - Plan Summary Plan Summary: WBC LFTs trending down Repeat in am prior to discharge
[2018-11-08] MEDS: KETOROLAC TROMETHAMINE 10 MG TABLET PO PRN (23:27)
[2018-11-09 04:12] LABS: ABSOLUTE EOSINOPHILS # (AUTO) 0.1 10^3/uL (0.0-0.6); ABSOLUTE LYMPHOCYTES (AUTO) 3.1 10^3/uL (0.5-4.7); ABSOLUTE MONOCYTES (AUTO) 0.8 10^3/uL (0.1-1.4); ABSOLUTE NEUT (AUTO) 4.4 10^3/uL (1.7-8.2); BASOPHILS % (AUTO) 0.5 % (0-2); EOSINOPHILS % (AUTO) 0.9 % (0-6); HEMATOCRIT 34.5 % (36.0-47.0); HEMOGLOBIN 11.9 g/dL (12.0-15.5); LYMPHOCYTES % (AUTO) 36.6 % (13-45); MEAN CORPUSCULAR HEMOGLOBIN 30.6 pg (27.0-33.4); MEAN CORPUSCULAR HGB CONC 34.5 g/dL (32.0-36.0); MEAN CORPUSCULAR VOLUME 88 fl (80-97); MONOCYTES % (AUTO) 9.4 % (3-13); PLATELET COUNT 253 10^3/uL (150-450); RED CELL DISTRIBUTION WIDTH 13.4 % (11.5-14.0); SEGMENTED NEUTROPHILS % (AUTO) 52.6 % (42-78); TOTAL CELLS COUNTED % (AUTO) 100 %; WHITE BLOOD COUNT 8.3 10^3/uL (4.0-10.5)
[2018-11-09 04:37] LABS: ALANINE AMINOTRANSFERASE 160 U/L (9-52); ALBUMIN 3.2 g/dL (3.5-5.0); ALKALINE PHOSPHATASE 240 U/L (38-126); ANION GAP 8 (5-19); ASPARTATE AMINO TRANSFERASE 63 U/L (14-36); BILIRUBIN,DIRECT 0.5 mg/dL (0.0-0.4); BILIRUBIN,TOTAL 1.3 mg/dL (0.2-1.3); BLOOD UREA NITROGEN 7 mg/dL (7-20); CALCIUM 9.1 mg/dL (8.4-10.2); CARBON DIOXIDE 30 mmol/L (22-30); CHLORIDE 102 mmol/L (98-107); GLUCOSE 84 mg/dL (75-110); POTASSIUM 3.8 mmol/L (3.6-5.0); TOTAL PROTEIN 6.3 g/dL (6.3-8.2)
[2018-11-09] MEDS: KETOROLAC TROMETHAMINE 10 MG TABLET PO PRN (11:02)
[2018-11-09 13:31] VITALS: BP 164/89
--- NOTE | 2018-11-09 14:35 | PDOC PROGRESS REPORT ---
Subjective Progress Note for:: 11/08/18 Reason For Visit: She had an ERCP on 11/06/18 but common bile duct was not cannulated. She then had laparoscopic cholecystectomy the next day with intraoperative cholangiogram. There was no contrast filling of the duodenum concerning for an obstruction. Her MRI performed the same day showed dilation of the common bile duct up to 1 cm but no filling defect. Her LFTs has also been going down. She tolerated a soft diet this afternoon but still has some discomfort from the surgery. Physical Exam Vital Signs: Temp Pulse Resp BP Pulse Ox 97.8 F 78 12 164/89 H 97 11/09/18 11:10 11/09/18 11:10 11/09/18 11:10 11/09/18 11:10 11/09/18 11:10 Intake & Output 11/08/18 11/09/18 11/10/18 06:59 06:59 06:59 Intake Total 2250 2360 Output Total 20 Balance 2230 2360 Weight 50.3 kg 50.1 kg Results Laboratory Results: 11/09/18 03:42 11/09/18 03:42 11/09/18 11/09/18 03:42 03:42 WBC 8.3 RBC 3.90 Hgb 11.9 L Hct 34.5 L MCV 88 MCH 30.6 MCHC 34.5 RDW 13.4 Plt Count 253 Seg Neutrophils % 52.6 Lymphocytes % 36.6 Monocytes % 9.4 Eosinophils % 0.9 Basophils % 0.5 Absolute Neutrophils 4.4 Absolute Lymphocytes 3.1 Absolute Monocytes 0.8 Absolute Eosinophils 0.1 Absolute Basophils 0.0 Sodium 140.0 Potassium 3.8 Chloride 102 Carbon Dioxide 30 Anion Gap 8 BUN 7 Creatinine 0.57 Est GFR ( Amer) > 60 Est GFR (Non-Af Amer) > 60 Glucose 84 Calcium 9.1 Total Bilirubin 1.3 AST 63 H ALT 160 H Alkaline Phosphatase 240 H Total Protein 6.3 Albumin 3.2 L Impressions: Abdomen Ultrasound 11/05/18 08:46 IMPRESSION: Mild gallbladder wall thickening with some pericholecystic fluid. There is some sludge. No stones are present. Correlate for cholecystitis. However, there was a negative Arteaga sign. Catheter Placement 11/06/18 00:00 IMPRESSION: IMAGE(S) OBTAINED DURING PROCEDURE. Fluoroscopy 11/06/18 00:00 IMPRESSION: IMAGE(S) OBTAINED DURING PROCEDURE. Abdomen MRI 11/07/18 00:00 IMPRESSION: Status post cholecystectomy. Dilation of the common bile duct to 1.0 cm, as seen on prior imaging. No filling defect of the distal common bile duct to suggest choledocholithiasis as seen on intraoperative cholangiogram images. Cholangiogram 11/07/18 00:00 IMPRESSION: Intraoperative cholangiogram. Completion image demonstrates residual ovoid filling defect within the distal CBD compatible with choledocholithiasis. Please see operative report for detailed discussion. Assessment & Plan - Diagnosis (1) Jaundice Is this a current diagnosis for this admission?: Yes Plan: Her LFTs are improving. If there is future concern for choledocholithiasis I will suggest an ERCP at [place] or [place]. She will likely be going home tomorrow (2) Epigastric pain Is this a current diagnosis for this admission?: Yes (3) Elevated LFTs and lipase Is this a current diagnosis for this admission?: Yes
[2018-11-09] MEDS ORDERED: MAGNESIUM SULFATE/D5W 1 GM/100 ML RTUPB IV ONE (15:51)
--- NOTE | 2018-11-10 12:33 | DISCHARGE SUMMARY E ---
Discharge Summary NAME: HATTIE VALDERRAMA : 1970 AGE: 48Y ADMITTED: 11/05/2018 DISCHARGED: 11/09/2018 FINAL DIAGNOSES: 1. Acute on chronic cholecystitis. 2. Elevated liver function tests (LFTs) and lipase. PROCEDURES DONE: 1. On 11/06/[address] Mireles. 2. On 11/07/2018 laparoscopic cholecystectomy with intraoperative cholangiogram that was negative, surgeon Dr. Holley. HOSPITAL COURSE: The patient had ERCP by Dr. Mireles on 11/06/2018, which was unsuccessful. Meantime, her LFTs and lipase gradually trending down. She then underwent laparoscopic cholecystectomy on 11/07/[address] Holley. An intraoperative cholangiogram was also performed, but no evidence of common bile duct obstruction, but the dye appears to be not going to the duodenum. Subsequent MRCP was done, which showed essentially normal bile ducts with no stones. Meantime, patient's enzymes continued to gradually decrease to almost normal with a normal lipase and total bilirubin. She was able to eat a regular diet well on the day of discharge with minimal pain from the surgery. She was then discharged improved on 11/09/2018 with above final diagnosis. Patient to be followed up in the surgical clinic in 2 weeks. She was advised to take Tylenol p.r.n. for pain. Also advised not to do any heavy lifting more than 10 to 15 pounds for the next 2 weeks. A note was given to her to go back to work in 2 weeks. DICTATING PHYSICIAN: NÉSTOR URBINA M.D. [id number] PHY#: [id number] ID: [id number] JOB#: [id number] ACCT: [id number] cc:NÉSTOR URBINA M.D. >
== END 2018-11-09 15:49 | disposition home or self-care (01) | DRG 419 ==
LOC: ER 08:22 → EH 15:34 → 5 17:47
PROVIDERS: ADMIT Surgery; ATTEND Surgery
PROC: 0FJD8ZZ Inspection of Pancreatic Duct, Via Natural or Artificial Opening Endoscopic (ICD-10-PCS; 2018-11-06)
PROC: 0FT44ZZ Resection of Gallbladder, Percutaneous Endoscopic Approach (ICD-10-PCS; principal; 2018-11-07 16:15)
DX: K81.0 Acute cholecystitis (principal); K81.1 Chronic cholecystitis
CPT/HCPCS: 36415; 43260; 732; 74181; 74300; 74328; 76705; 790; 80048; 80053; 80076; 81001; 81025; 83690; 84132; 85025; 88304; 99285; J0131; J0330; J1100; J1170; J1610; J1885; J2250; J2405; J2543; J2704; J3010; J3480; J3490